=== PATIENT | female | born 1995 ===

== ENCOUNTER 2019-01-15 14:47 | Emergency (ER) | payer SELFPAY ==
[2019-01-15 15:04] VITALS: BP 134/76; PULSE 82; RESP 20; TEMP 98.2; O2SAT 99
[2019-01-15] MEDS ORDERED: Sodium Chloride 0.9% 1,000 ML IV ONE (15:18)
[2019-01-15] MEDS ORDERED: Sodium Chloride 0.9% 1,000 ML ONE (15:26)
[2019-01-15 15:42] LABS: BASO % 0.6 % (0.0-2.0); EOS # 0.2 K/uL (0.0-0.7); EOS % 2.3 % (0.0-4.0); HEMOGLOBIN 12.6 g/dL (11.0-16.0); LYMPH # 1.4 K/uL (1.0-4.3); LYMPH % 18.5 % (20.0-40.0); MEAN CELL VOLUME 88.8 fL (81.0-99.0); MEAN CORPUSCULAR HGB CONC 34.9 g/dL (33.0-37.0); MEAN PLATELET VOLUME 7.3 fL (7.2-11.7); MONO # 0.6 K/uL (0.0-0.8); MONO % 7.3 % (0.0-10.0); NEUT # 5.4 K/uL (1.8-7.0); NEUT % 71.3 % (50.0-75.0); RBC 4.07 Mil/uL (3.80-5.20); RED CELL DISTRIBUTION WIDTH 12.7 % (11.5-14.5); WHITE BLOOD COUNT 7.5 K/uL (4.8-10.8)
[2019-01-15 15:46] LABS: SQUAMOUS EPITHIAL < 1 /hpf (0-5); URINE BILIRUBIN NEGATIVE (NEGATIVE); URINE BLOOD NEGATIVE (NEGATIVE); URINE CLARITY Clear (Clear); URINE COLOR Yellow (YELLOW); URINE GLUCOSE (UA) NORMAL (Normal); URINE LEUKOCYTE ESTERASE NEG Leu/uL (Negative); URINE PROTEIN NEGATIVE (NEGATIVE); URINE UROBILINOGEN NORMAL mg/dL (0.2-1.0)
--- NOTE | 2019-01-15 15:50 | C.PDOC ---
History Of Present Illness 23 y/o female, , presents to the ER complaining of cramping pelvic pain which has been present for the past 1 week. Patient states that she had 2 positive tests at home. Patient reports that her LMP was on 12/07/18. 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 Time Seen by Provider: 01/15/19 15:07 Chief Complaint (Nursing): Abdominal Pain History Per: Patient History/Exam Limitations: no limitations Onset/Duration Of Symptoms: Days Current Symptoms Are (Timing): Still Present Severity: Moderate Past Medical History Reviewed: Historical Data, Nursing Documentation, Vital Signs Vital Signs: Last Vital Signs Temp 98.2 F 01/15/19 15:01 Pulse 82 01/15/19 15:01 Resp 20 01/15/19 15:01 BP 134/76 01/15/19 15:01 Pulse Ox 99 01/15/19 15:01 Primary Care Provider: Non [facility] Provider, - Medical History PMH: No Chronic Diseases Surgical History: No Surg Hx Family History: States: No Known Family Hx - Social History Hx Alcohol Use: Yes Hx Substance Use: No - Immunization History Hx Tetanus Toxoid Vaccination: No Hx Influenza Vaccination: No Hx Pneumococcal Vaccination: No Review Of Systems Except As Marked, All Systems Reviewed And Found Negative. Constitutional: Negative for: Fever, Chills Gastrointestinal: Positive for: Abdominal Pain. Negative for: Nausea, Vomiting Genitourinary: Negative for: Dysuria, Hematuria, Vaginal Discharge, Vaginal Bleeding Physical Exam - Physical Exam Appears: Non-toxic, No Acute Distress, Other (comfortable) Skin: Normal Color, Warm, Dry Head: Atraumatic, Normacephalic Eye(s): bilateral: Normal Inspection Nose: Normal Oral Mucosa: Moist Neck: Supple Chest: Symmetrical Cardiovascular: Rhythm Regular Respiratory: Normal Breath Sounds, No Rales, No Rhonchi, No Wheezing Gastrointestinal/Abdominal: Soft, Tenderness (suprapubic tenderness) Neurological/Psych: Oriented x3, Normal Speech ED Course And Treatment - Laboratory Results Result Diagrams: 01/15/19 15:37 01/15/19 15:37 O2 Sat by Pulse Oximetry: 99 (RA) Pulse Ox Interpretation: Normal Progress Note: Labs,UA, and US-OB ordered. Patient treated with Tylenol PO and IV Fluids. Disposition Counseled Patient/Family Regarding: Studies Performed, Diagnosis, Need For Followup - Disposition Referrals: [facility] [Outside] Disposition: HOME/ ROUTINE Disposition Time: 18:35 Condition: STABLE Additional Instructions: RETURN TO ER IN 48 HOURS FOR REPEAT HORMONE LEVEL AND PELVIC ULTRASOUND RETURN TO ER SOONER IF YOU HAVE CONCERNING SYMPTOMS Instructions: Stomach Pain in Early Forms: [facility] ([place]) Print Language: AMHARIC - Clinical Impression Clinical Impression: Abdominal pain affecting - Scribe Statement The provider has reviewed the documentation as recorded [facility] the [facility] Littlejohn Provider Attestation: All medical record entries made by the Scribe were at my direction and personally dictated by me. I have reviewed the chart and agree that the record accurately reflects my personal performance of the history, physical exam, [facility] decision making, and the department course for this patient. I have also personally directed, reviewed, and agree with the discharge instructions and disposition.
[2019-01-15 15:56] LABS: ALB/GLOB RATIO 1.3 (1.0-2.1); ALBUMIN 4.5 g/dL (3.5-5.0); ALT/SGPT 16 U/L (9-52); AST/SGOT 21 U/L (14-36); BLOOD UREA NITROGEN 8 mg/dL (7-17); CALCIUM 9.3 mg/dl (8.6-10.4); GFR NON-AFRICAN AMERICAN > 60
--- NOTE | 2019-01-15 18:30 | US ---
Date of service: 2019-01-15 17:33:31 Indication: abd/pelvis pain, Comparison: None available Technique: Real-time transabdominal pelvic ultrasound was performed. In addition a transvaginal pelvic ultrasound was necessary to better depict pelvic anatomy. Findings: The uterus measures approximately 10.3 x 6.4 x 6.2 cm. Anteverted. Cervix length measures approximately 3.4 cm. The gestational sac measures 0.8 cm, too small for gestational age calculation. 1 mm yolk sac. No evidence of pole at this time. The right ovary measures 3.2 x 2.5 x 2.9 cm. The left ovary measures 3.9 x 3.0 x 3.7 cm and contains 2.8 x 2.6 x 2.8 cm corpus luteum. Blood flow was demonstrated to both ovaries. Small pelvic free fluid. Impression: Evidence of intrauterine gestational sac which measures 0.8 cm, too small for gestational age calculation. 1 mm yolk sac noted. No evidence of pole at this time. Recommend correlation with quantitative beta HCG and close interval follow-up as indicated. 2.8 x 2.6 x 2.8 cm probable left corpus luteum. Small pelvic free fluid.
== END 2019-01-15 18:58 | disposition home or self-care (01) ==
LOC: C.ER 14:47
DX: O26.891 Other specified pregnancy related conditions, first trimester (principal); R10.9 Unspecified abdominal pain; Z3A.00 Weeks of gestation of pregnancy not specified
CPT/HCPCS: 76805; 76817; 80053; 81001; 84702; 85025; 86850; 86900; 99284; J7030

== ENCOUNTER 2019-01-23 13:15 | Emergency (ER) | payer SELFPAY ==
[2019-01-23 13:31] VITALS: PULSE 77
--- NOTE | 2019-01-23 13:47 | C.PDOC ---
History Of Present Illness 23 year old female presents to ED with complaint of persistent vaginal spotting since 01/15. Patient was seen on 01/15 for the same symptoms and diagnosed with threatened vs incomplete AB. BETA 7010. Patient complains of mild pelvic cramping. Patient also complains of new onset right lower molar tooth pain for the past 3 days. Patient also complains of sore throat. Patient states that on 3 she has her wisdom teeth removed but does not know which one is left. Patient denies fever, chills, nausea , vomiting, and abdominal pain. CO PERSIST VAG SPOTTING SINCE 01/15. SEEN 01/15 FOR SAME, DX THREATENED VS INCOMPLETE AB. BETA 7010. MILD PELVIC CRAMPING. NO OTHER ASSOC SX ALSO CO NEW ONSET R LOWER MOLAR TOOTH PAIN X 3 DAYS, SORE THROAT. NO FEVER. ?DENTAL VS GUM PAIN. PS 3/ WISDOM TEETH REMOVED BUT DOES NOT KNOW WHICH ONE IS LEFT EXAM NONTOXIC HEENT NO PALLOR; THROAT CLEAR; +MILD GUM SWELL AROUND R LOWER MOLAR 3. NO DEN TALGIA, ABSCESS. NO FACIAL SWELL REMAINDER NEG MDM RO INCOMPLETE VS ECTOPIC. PT NONCOMPLIANT W PREV INSTRUCTION FOR FU. GUM SWELLING NO DENTAL ABSCESS. NO FACIAL SWELL. Chief Complaint (Nursing): Female Genitourinary History Per: Patient History/Exam Limitations: no limitations Onset/Duration Of Symptoms: Days (8) Current Symptoms Are (Timing): Still Present Quality Of Discomfort: Cramping Associated Symptoms: denies: Fever, Nausea, Vomiting, Back Pain, Urinary Symptoms Abnormal Vaginal Bleeding: Yes : 3 Para: 2 Miscarriage: 0 Past Medical History Reviewed: Historical Data, Nursing Documentation, Vital Signs Vital Signs: Last Vital Signs Temp 98.6 F 01/23/19 13:21 Pulse 77 01/23/19 13:21 Resp 16 01/23/19 13:21 BP 129/73 01/23/19 13:21 Pulse Ox 95 01/23/19 13:21 Primary Care Provider: FAMILY PROVIDER,NO - Medical History PMH: No Chronic Diseases Surgical History: No Surg Hx Family History: States: Unknown Family Hx - Social History Hx Alcohol Use: Yes Hx Substance Use: No - Immunization History Hx Tetanus Toxoid Vaccination: No Hx Influenza Vaccination: No Hx Pneumococcal Vaccination: No Review Of Systems Except As Marked, All Systems Reviewed And Found Negative. ENT: Positive for: Mouth Pain (right lower molar tooth pain ), Throat Pain Genitourinary: Positive for: Vaginal Bleeding (vaginal spotting), Pelvic Pain (cramping) Physical Exam - Physical Exam Appears: Well, Non-toxic, No Acute Distress Skin: Normal Color, Warm, Dry, No Pale Head: Atraumatic, Normacephalic, No Swelling (facial swelling) Eye(s): bilateral: Normal Inspection Ear(s): Bilateral: Normal Oral Mucosa: Moist Teeth: Normal Dentition, No Caries, No Tender To Palpation Gingiva: Swelling (mild swelling around right lower molar 3, no dentalgia), No Abscess Throat: Normal, No Erythema, No Exudate Neck: Normal ROM, Supple Chest: Symmetrical, No Deformity Cardiovascular: Rhythm Regular, No Murmur Respiratory: No Accessory Muscle Use, No Rales, No Rhonchi, No Wheezing, Other (NARD) Gastrointestinal/Abdominal: Soft, No Tenderness, No Distention, No Guarding, No Rebound Pelvic: Normal External Exam Extremity: Capillary Refill (<2 seconds) Extremity: Bilateral: Atraumatic, Normal Color And Temperature, Normal ROM Pulses: Left Radial: Normal, Right Radial: Normal Neurological/Psych: Oriented x3, Normal Speech, Normal Cognition ED Course And Treatment O2 Sat by Pulse Oximetry: 95 (in RA) Pulse Ox Interpretation: Normal - CT Scan/US OB Pelvic US Other Rad Studies (CT/US): Read By Radiologist CT/US Interpretation: IMPRESSION: Single intrauterine gestation with cardiac activity. The cardiac beats per minute currently is 72.65.. This may be low-normal for this patient's fetus at this stage-6 weeks 1 day +/-0 weeks 3 days. No perigestational hemorrhage seen. The position of the gestational sac an overall shape appears grossly within normal limits. Continued follow-up advised to assess ongoing viability. Consider follow-up pelvic ultrasound imaging in 7 to 10 days. Gestational sac has grown within expected parameters since the prior exam. Progress Note: Beta-HCG, OB ultrasound, rhogham, and type and screen ordered for patient. Progress - Re-Evaluation Re-evaluation Note: 01/23/19 16:03 APPEARS COMFORTABLE NAD. PS PREV RECEIVED RHOGHAM DURING PRIOR PREGNANCIES REPEAT BETA, US +VIABLE IUP. RH - ON 01/15. RHOGHAM, OBGYN FU - Data Reviewed Data Reviewed: Lab, Diagnostic imaging, Old records Medical Decision Making Medical Decision Making: Rule out incomplete vs ectopic. Patient non-compliant with previous instructions for follow up. Gum swelling present with no dental abscess. No facial swelling. Disposition Counseled Patient/Family Regarding: Studies Performed, Diagnosis, Need For Followup - Disposition Referrals: [facility] [Outside] [facility]Outside[facility] Disposition: HOME/ ROUTINE Disposition Time: 16:04 Condition: GOOD Instructions: Threatened Miscarriage (DC) Forms: [employer] ([place]) - Clinical Impression Clinical Impression: Threatened miscarriage - Scribe Statement The provider has reviewed the documentation as recorded by the Scribe (Li Palacio) All medical record entries made by the Scribe were at my direction and personally dictated by me. I have reviewed the chart and agree that the record accurately reflects my personal performance of the history, physical exam, medical decision making, and the department course for this patient. I have also personally directed, reviewed, and agree with the discharge instructions and disposition.
--- NOTE | 2019-01-23 14:50 | US ---
Date of service: 01/23/2019 PROCEDURE: OB Pelvic Ultrasound HISTORY: VAG BLEED RO RETAINED POC LMP: 12/07/2018 COMPARISON: 01/15/2019 FINDINGS: UTERUS: Gestational sac: Single intrauterine gestation. Gestational sac appears anterior and at the level of the upper uterine body. Heart rate: 72.65 bpm. Yolk sac present at 0.22 cm. pole present. Meyers-rump length 0.46 cm. age (Ultrasound estimated): 6 weeks 1 day +/-0 weeks 3 days [facility]-gestational hemorrhage: None appreciated Date of delivery (Ultrasound estimated) : 09/17/2019 Uterus measures 12.0 x 6.3 x 7.2 cm. Diverted appearance no masses appreciated. CERVIX: Measures 3.4 cm. Long and closed. No cervical abnormality seen. RIGHT OVARY: Measures 3.8 x 2.1 x 3.5 cm. No mass lesion. Normal flow. LEFT OVARY: Measures 4.9 x 3.4 x 3.7 cm. No solid mass. Normal flow. Prior corpus luteal cyst now suggested at 2.6 x 2.3 x 2.5 FREE FLUID: None. OTHER FINDINGS: None. IMPRESSION: Single intrauterine gestation with cardiac activity. The cardiac beats per minute currently is 72.65.. This may be low-normal for this patient's fetus at this stage-6 weeks 1 day +/-0 weeks 3 days. No perigestational hemorrhage seen. The position of the gestational sac an overall shape appears grossly within normal limits. Continued follow-up advised to assess ongoing viability. Consider follow-up pelvic ultrasound imaging in 7 to 10 days. Gestational sac has grown within expected parameters since the prior exam.
[2019-01-23 18:10] VITALS: BP 112/70; RESP 20; TEMP 98.8
[2019-01-23 18:21] VITALS: O2SAT 95
== END 2019-01-23 18:09 | disposition home or self-care (01) ==
LOC: C.ER 13:15
DX: O20.0 Threatened abortion (principal)
CPT/HCPCS: 76801; 84702; 86850; 86900; 99284; J2792